=== PATIENT | male | born 1935 | race Caucasian/White ===

== ENCOUNTER 2018-06-07 12:04 | Inpatient (IN) | payer MEDICARE ==
--- NOTE | 2018-06-07 13:12 | RAD ---
RIGHT FEMUR TWO VIEWS: History: Right hip pain. FINDINGS/IMPRESSION: There is a fracture of the subcapital region of the neck of the right femur with associated foreshort ening. POS: TPC
[2018-06-07] MEDS ORDERED: Morphine 4 MG/ML VIAL ONE (13:13)
[2018-06-07] MEDS ORDERED: Ondansetron PF 4 MG/2 ML Vial ONE (13:13)
[2018-06-07 13:25] LABS: #Lymphocytes 0.6 thou/uL (1.20-3.40); #Monocytes 0.4 thou/uL (0.11-0.59); #Neutrophils 6.9 thou/uL (1.40-6.50); %Eosinophils 0.4 % (0.0-10.0); %Lymphocytes 7.2 % (21.0-51.0); %Monocytes 4.7 % (0.0-10.0); %Neutrophils 87.6 % (42.0-75.0); Hemoglobin 13.4 g/dL (14.0-18.0); Mean Corpuscular HGB CONC 35.7 g/dL (32.0-36.0); Mean Corpuscular Hemoglobin 34.3 pg (27.0-31.0); Mean Corpuscular Volume 96.1 fL (78.0-98.0); Mean Platelet Volume 6.5 fL (7.4-10.4); Platelet Count 197 thou/uL (130-400); RBC Distribution Width 12.6 % (11.5-14.5); White Blood Cell (WBC) Count 7.9 thou/uL (4.8-10.8)
[2018-06-07 13:30] LABS: PTT 30.2 SEC (22.9-36.1)
[2018-06-07 13:31] LABS: INR-International Normal Ratio 1.1; Prothrombin Time 14.5 SEC (12.0-14.7)
--- NOTE | 2018-06-07 13:40 | RAD ---
FExam: Chest one view HISTORY:Preoperative evaluation Comparison: None FINDINGS: Lungs: Mild hazy density at left lung base presumed granulomatous desiccation overlies the upper cent ral left chest. Cardiac silhouette:Enlarged Pulmonary vessels: Mildly engorged Pleural Spaces: Mild left pleural based density at inferior left hemithorax. Pneumothorax: None Osseous abnormalities: None IMPRESSION: Left basilar density, with findings that may reflect mild pleural fluid and adjacent atelectasis and/ or pneumonia. Follow-up to resolution is recommended. Enlarged cardiac silhouette and pulmonary vasculature. Correlate for evidence of fluid overload.
[2018-06-07 13:48] LABS: ALT (SGPT) 23 U/L (8-55); AST (SGOT) 25 U/L (5-34); Albumin 4.2 g/dL (3.4-4.8); Alkaline Phosphatase 82 U/L (40-150); Anion Gap 11 mmol/L (10-20); BUN (Urea Nitrogen) 14 mg/dL (8.4-25.7); Bilirubin, Total 0.7 mg/dL (0.2-1.2); Calc. Creatinine Clearance 0 mL/min (70-130); Calcium 8.9 mg/dL (7.8-10.44); Carbon Dioxide 24 mmol/L (23-31); Chloride 109 mmol/L (98-107); Estimated GFR-MDRD 84; Globulin 2.3 g/dL (2.4-3.5); Glucose 108 mg/dL (83-110); Potassium 3.7 mmol/L (3.5-5.1); Protein, Total 6.5 g/dL (5.8-8.1); Sodium 140 mmol/L (136-145)
[2018-06-07] MEDS ORDERED: Cyclobenzaprine 10 MG TAB ONE (14:45)
[2018-06-07] MEDS ORDERED: Ondansetron HCl/PF 4 MG/2 ML Vial IVP PRN (16:32)
[2018-06-07] MEDS ORDERED: Morphine 2 MG/ML SYRINGE ONE (19:21)
[2018-06-07 21:06] VITALS: BMI 23.9
[2018-06-07] MEDS ORDERED: hydrALAZINE 20 MG/ML VIAL SLOW IVP PRN (21:10)
[2018-06-07] MEDS ORDERED: Dextrose 5% in Water 1,000 ML IV PRN (21:10)
[2018-06-07] MEDS ORDERED: Promethazine HCl 25 MG/ML VIAL IM PRN (21:10)
[2018-06-07] MEDS ORDERED: Morphine 4 MG/ML VIAL SLOW IVP PRN (21:10)
[2018-06-07] MEDS ORDERED: traMADol HCl 50 MG TAB PO PRN (21:10)
[2018-06-07] MEDS ORDERED: CEFAZOLIN 2 GM in Premix Bag 1 BAG IVPB SCH (21:10)
[2018-06-07] MEDS ORDERED: Ondansetron PF 4 MG/2 ML Vial IVP PRN (21:10)
[2018-06-07] MEDS ORDERED: Dextrose 50% Abboject 50 ML SYRINGE SLOW IVP PRN (21:10)
[2018-06-07] MEDS: Gabapentin 100 MG CAP PO SCH (21:39)
[2018-06-07] MEDS: Acetaminophen 1,000 MG in Premix Bag 1 BAG IVPB SCH (21:39)
[2018-06-07] MEDS: Ibuprofen 600 MG TAB PO SCH (21:40)
[2018-06-07] MEDS: Senokot S 8.6-50 MG TAB PO SCH (21:40)
[2018-06-07] MEDS: Famotidine/PF 20 mg/2ml Vial SLOW IVP SCH (21:40)
[2018-06-07] MEDS: Sodium Chloride 0.9% 1,000 ML IV SCH (21:41)
[2018-06-08] MEDS: Sodium Chloride 0.9% 1,000 ML IV SCH ×2 (03:09→17:32)
[2018-06-08] MEDS: Acetaminophen 1,000 MG in Premix Bag 1 BAG IVPB SCH ×4 (03:09→20:32)
[2018-06-08] MEDS: Ibuprofen 600 MG TAB PO SCH ×3 (05:16→21:19)
[2018-06-08 05:52] LABS: #Eosinphils 0.2 thou/uL (0.0-0.7); #Lymphocytes 1.1 thou/uL (1.20-3.40); #Monocytes 0.7 thou/uL (0.11-0.59); #Neutrophils 5.1 thou/uL (1.40-6.50); %Basophils 0.4 % (0.0-1.0); %Eosinophils 3.1 % (0.0-10.0); %Monocytes 9.6 % (0.0-10.0); %Neutrophils 70.8 % (42.0-75.0); Hemoglobin 12.8 g/dL (14.0-18.0); Mean Corpuscular HGB CONC 33.7 g/dL (32.0-36.0); Mean Corpuscular Hemoglobin 33.1 pg (27.0-31.0); Mean Corpuscular Volume 98.1 fL (78.0-98.0); Mean Platelet Volume 6.3 fL (7.4-10.4); Platelet Count 166 thou/uL (130-400); RBC Distribution Width 12.7 % (11.5-14.5); Red Blood Cell (RBC) Count 3.88 mill/uL (4.70-6.10); White Blood Cell (WBC) Count 7.1 thou/uL (4.8-10.8)
[2018-06-08 06:11] LABS: Anion Gap 10 mmol/L (10-20); BUN (Urea Nitrogen) 13 mg/dL (8.4-25.7); Calc. Creatinine Clearance 73 mL/min (70-130); Calcium 8.7 mg/dL (7.8-10.44); Carbon Dioxide 27 mmol/L (23-31); Chloride 107 mmol/L (98-107); Estimated GFR-MDRD 81; Glucose 98 mg/dL (83-110); Magnesium 2.1 mg/dL (1.6-2.6); Phosphorus 3.4 mg/dL (2.3-4.7); Potassium 3.7 mmol/L (3.5-5.1); Sodium 140 mmol/L (136-145)
[2018-06-08] MEDS ORDERED: Potassium Phosphate 15 MMOL in Sodium Chloride 0.9% 250 ML 250 ML IVPB SCH (07:15)
--- NOTE | 2018-06-08 07:18 | HP ---
TRAUMA SURGEON: Dr. Garnica. CONSULTING PHYSICIAN: Dr. Graham. HISTORY OF PRESENT ILLNESS: The patient is an 82-year-old male, who arrived to the emergency department via EMS after his horse ran into him and he subsequently fell forward. The patient was evaluated by the Emergency Department and was found to have a right femoral neck fracture. He takes aspirin every day, but otherwise denies anticoagulation use. Denies nausea, vomiting, or diarrhea. Denies numbness or tingling to the right lower extremity. PAST MEDICAL HISTORY: The patient is a very poor historian, takes his medications regularly, but is not sure why. He does report a history of hypertension, BPH, and a right carotid artery stent. PAST SURGICAL HISTORY: Right carotid artery stent and appendectomy. SOCIAL HISTORY: The patient lives with his at home. Denies tobacco, alcohol, or drug use. MEDICATIONS: 1. Nifedipine ER 90 mg once a day. 2. Aspirin 81 mg once a day. 3. Vitamin C of 1000 mg once a day. 4. Carvedilol 3.125 mg b.i.d. 5. Lisinopril 20 mg twice a day. 6. Centrum Silver once a day. 7. Simvastatin 40 mg at night. 8. Five strain probiotics once a day at night. ALLERGIES: NO KNOWN DRUG ALLERGIES. PHYSICAL EXAMINATION: VITAL SIGNS: Temperature 98.0, pulse 77, respirations 16, oxygen saturation 97% on room air, blood pressure 160/88. PRIMARY SURVEY: Airway, intact. Adequate breath sounds bilaterally. 2+ pulses in the bilateral radials, femorals, and PTs. GCS is 15. Gross motor and sensation are intact. No lacerations, bruises, or external bleeding. SECONDARY SURVEY: HEAD: Normocephalic and atraumatic. No gross palpable skull deformities or tenderness. EYES: Pupils are equal, round, and reactive to light, 3 to 2 bilaterally. ENT: No hemotympanum. No epistaxis. No septal hematoma. Midface stable to manipulation. No blood in the oropharynx. Dentition is intact. No anterior neck injury/crepitus/tenderness. C-SPINE: No step-offs or deformities. Nontender. C-collar not in place. CHEST: Nontender. No crepitus. No abrasions or ecchymosis noted. Equal chest movement. ABDOMEN: Soft, nontender, and nondistended. PELVIS: Stable to palpation. Right lateral tenderness. No abrasions or ecchymosis noted. RECTAL: Deferred. GENITOURINARY: Deferred. EXTREMITIES: Right lower extremity rotated and shortened with right thigh pain. No abrasions or ecchymosis noted. 2+ pulses in the bilateral femorals, radials, and PTs bilaterally. BACK/SPINE: No step-offs, deformities, or tenderness to palpation of the thoracic or lumbar spine. No abrasions or ecchymosis noted. NEUROLOGIC: 5/5 strength in the bilateral machine carton marker, plantarflexion, and dorsiflexion. Gross motor and sensation, intact x4 extremities. LABORATORY FINDINGS: White count 7.9, hemoglobin 13.4, hematocrit 34.5, platelets 179. INR 1.0. Sodium 140, potassium 3.9, chloride 109, carbon dioxide 29, BUN 14, creatinine 0.78, glucose 108. DIAGNOSTIC FINDINGS: X-ray of the right femur demonstrates there is a fracture of the subcapital region of the neck of the right femur with associated foreshortening. Chest x-ray demonstrates left basilar density with findings that may reflect mild pleural fluid and adjacent atelectasis and/or pneumonia. Followup to resolution is recommended. Enlarged cardiac silhouette and pulmonary vasculature. Correlate for evidence of fluid overload. ASSESSMENT: 1. Status post fall from standing. 2. Right femoral neck fracture. 3. Acute traumatic pain. 4. Left lower lobe pleural effusion/atelectasis. 5. History of hypertension, BPH, and hyperlipidemia. PLAN: The patient will be admitted to the trauma floor service and will go to the OR with Dr. Graham today. He is n.p.o., and has normal saline at 100 an hour. He will receive pain control with Tylenol, Flexeril, gabapentin, ibuprofen, p.r.n. morphine, and tramadol. He will work with Physical and Occupational Therapy postoperatively. We will repeat a.m. chest x-ray tomorrow to re-evaluate chest findings as the patient has been lying flat since his fall. Likely, left lower lobe area has atelectasis and should improve with the patient becoming more mobile and using his incentive spirometer. The patient will be discussed with Dr. Garnica after this dictation. Job ID: [id number]
--- NOTE | 2018-06-08 07:35 | RAD ---
FPortable chest radiograph: 06/08/2018 COMPARISON: 06/07/2018 HISTORY: Left basilar density noted on prior imaging. FINDINGS: There is mild increased density within the medial left lung base, stable. No pneumothorax o r pleural fluid. No lobar consolidation or alveolar edema. The degree of density in the left base may be on the basis of mitral annular calcification and volume loss. PA and lateral imaging of the chest would be helpful for full evaluation. IMPRESSION: Mild increased density in the medial left base with no focal consolidation or alveolar ed steve.
[2018-06-08] MEDS ORDERED: Prevnar 13-Val Conj/PF 0.5 ML SYRINGE IM ONE (09:00)
[2018-06-08] MEDS: Ascorbic Acid 500 mg Chewable Tablet PO SCH (09:46)
[2018-06-08] MEDS: Gabapentin 100 MG CAP PO SCH ×3 (09:47→20:33)
[2018-06-08] MEDS: Finasteride 5 MG TAB PO SCH (09:47)
[2018-06-08] MEDS: Famotidine/PF 20 mg/2ml Vial SLOW IVP SCH ×2 (09:47→20:32)
[2018-06-08] MEDS: Polyethylene Glycol 3350 17 GM Packet PO SCH (09:47)
[2018-06-08] MEDS: Senokot S 8.6-50 MG TAB PO SCH ×2 (09:48→20:32)
[2018-06-08] MEDS: Carvedilol 3.125 MG TAB PO SCH ×2 (09:58→20:33)
[2018-06-08] MEDS ORDERED: Fentanyl 100 MCG/2 ML VIAL ONE ×2 (12:56→14:23)
[2018-06-08] MEDS ORDERED: CEFAZOLIN 2 GM in Premix Bag 1 BAG IVPB SCH (13:30)
[2018-06-08] MEDS ORDERED: Promethazine HCl 25 MG/ML VIAL SLOW IVP PRN (13:59)
[2018-06-08] MEDS ORDERED: Promethazine HCl 25 MG/ML VIAL IM PRN (13:59)
[2018-06-08] MEDS ORDERED: Ondansetron HCl/PF 4 MG/2 ML Vial IVP PRN (13:59)
--- NOTE | 2018-06-08 14:33 | RAD ---
FXR Pelvis AP STANDARD History: [Hemiarthroplasty] Comparison: Femur radiograph prior to a Findings: Satisfactory appearance right femoral arthroplasty. Expected postoperative gas and edema. Impression: Satisfactory postoperative appearance
--- NOTE | 2018-06-08 14:41 | PRG ---
DATE OF SERVICE: 06/08/2018 SUBJECTIVE: The patient was seen this morning, sitting up in bed with no signs of acute distress. He is pending the OR this morning with Dr. Graham or Dr. Ness for fixation of his right femoral neck fracture. He reported that he slept well overnight and pain is well controlled. He has been in the bed since his arrival from the emergency department. He denies nausea, vomiting, or diarrhea. He is n.p.o. since midnight. We are holding his home antihypertensive medications at this time. We will reassess the need postoperatively. OBJECTIVE: VITAL SIGNS: Temperature 98, pulse 70, respirations 16, oxygen saturation 93% on room air, and blood pressure 127/68. GENERAL: Well-appearing male, lying in bed in the semi-Gloria position. No signs of acute distress. PULMONARY: Equal chest rise and fall. Clear breath sounds bilaterally. No signs of acute respiratory distress. CARDIAC: Regular rate and rhythm. No murmurs, gallops, or rubs. GI: Abdomen is soft, nontender, and nondistended. EXTREMITIES: Right lower extremity shortened with pain at the right hip and thigh. Gross motor and sensation intact in all extremities. 2+ pulses in all extremities. No significant swelling noted. LABORATORY FINDINGS: White count 7.1, hemoglobin 12.8, hematocrit 38.1, and platelets 166. Sodium 140, potassium 3.6, chloride 107, carbon dioxide 27, BUN 13, creatinine 0.90, phos 3.4, and magnesium 2.1. DIAGNOSTIC FINDINGS: Chest x-ray this morning demonstrates mild increased density in the medial left base with no focal consolidation or alveolar edema. ASSESSMENT: 1. Status post fall from standing. 2. Right femoral neck fracture. 3. History of hypertension, BPH, and right carotid stent. PLAN: The patient to go to the OR today for fixation of his right femur fracture. He will continue to be n.p.o. with normal saline at 100 an hour. We will continue home carvedilol, finasteride, and simvastatin, but we will hold home antihypertensives until postop and start as clinically indicated. We will continue current pain regimen. Postoperatively, the patient can have a regular diet and work with Physical and Occupational Therapy. The patient was seen and examined by Dr. Garnica and myself this morning during rounds. Job ID: [id number]
--- NOTE | 2018-06-08 14:43 | RAD ---
FXR Hip Rt 1 View History: [Hemiarthroplasty] Comparison: Femur radiograph prior day Findings: Satisfactory appearance right hemiarthroplasty. Expected postoperative gas and edema. Impression: Satisfactory postoperative appearance.
[2018-06-08] MEDS ORDERED: ePHEDrine 50 MG/ML VIAL ONE (16:09)
[2018-06-08] MEDS ORDERED: Lidocaine 1% PF 5 ML VIAL ONE (16:09)
[2018-06-08] MEDS ORDERED: Glycopyrrolate 0.2 MG/ML 5 ML SYRINGE ONE (16:09)
[2018-06-08] MEDS ORDERED: Rocuronium Bromide 10 MG/ML (10ML VIAL) ONE (16:09)
[2018-06-08] MEDS ORDERED: Ondansetron PF 4 MG/2 ML Vial ONE (16:09)
[2018-06-08] MEDS ORDERED: PROPOFOL 200 MG/20 ML VIAL ONE (16:09)
--- NOTE | 2018-06-08 20:11 | OP ---
DATE OF PROCEDURE: 06/08/2018 PROCEDURE PERFORMED: Right hip hemiarthroplasty, bipolar. PREOPERATIVE DIAGNOSIS: Right femoral neck fracture. POSTOPERATIVE DIAGNOSIS: Right femoral neck fracture. COMPLICATIONS: None. ESTIMATED BLOOD LOSS: 100 mL. SANITARY PLUMBER: Avial Teixeira PA-C. IMPLANTS: DePuy size 7 basic press-fit stem, size 54 femoral head, +1.5 neck. INDICATIONS: Mr. Kamara is an 82-year-old male, who has fallen. He fractured the right femoral neck. He was indicated for hemiarthroplasty of the hip to restore the ability to mobilize and prevent complications of prolonged bedrest. Risks have been reviewed in detail. He elected to proceed with the operation. DESCRIPTION OF PROCEDURE: Mr. Kamara was identified in the preoperative holding area. His correct extremity was marked. He was carried to the operating room. He was positioned supine. General anesthesia was induced. A multidisciplinary time-out was performed. The right lower extremity was prepped and draped in sterile fashion. We began the procedure with posterior approach to the hip. We dissected down through the subcutaneous tissues to the fascia, which was opened. We explored the underlying tissues. We identified the piriformis tendon. We then subperiosteal divided the short external rotators from the proximal femur and performed the capsulotomy. We then removed the femoral head and neck fragments. At this point, we irrigated. We then exposed the proximal femur. We entered the intramedullary canal of the femur. We reamed the canal followed by broaching. We broached up to a size 7. We trialed off the broach. A +1.5 length was appropriate. At this point, we removed the trial components and impacted our final stem as well as our bipolar head in shell. The hip again was checked for stability. We thoroughly irrigated and closed with #1 Vicryl suture, 2-0 Vicryl suture, and Ethibond sutures were used to repair the capsule and piriformis through drill holes. The patient was taken to the recovery room in good condition without complication. Job ID: [id number]
[2018-06-08] MEDS: Cyclobenzaprine 10 MG TAB PO PRN (20:33)
[2018-06-08] MEDS: Simvastatin 40 MG TAB PO SCH (20:33)
[2018-06-09] MEDS: Sodium Chloride 0.9% 1,000 ML IV SCH (03:28)
[2018-06-09 04:57] LABS: #Eosinphils 0.3 thou/uL (0.0-0.7); #Lymphocytes 0.9 thou/uL (1.20-3.40); #Monocytes 0.8 thou/uL (0.11-0.59); #Neutrophils 5.4 thou/uL (1.40-6.50); %Basophils 0.4 % (0.0-1.0); %Eosinophils 3.9 % (0.0-10.0); %Monocytes 10.4 % (0.0-10.0); %Neutrophils 73.3 % (42.0-75.0); Hemoglobin 10.5 g/dL (14.0-18.0); Mean Corpuscular HGB CONC 35.5 g/dL (32.0-36.0); Mean Corpuscular Hemoglobin 35.4 pg (27.0-31.0); Mean Corpuscular Volume 99.6 fL (78.0-98.0); Mean Platelet Volume 6.4 fL (7.4-10.4); Platelet Count 141 thou/uL (130-400); RBC Distribution Width 12.8 % (11.5-14.5); Red Blood Cell (RBC) Count 2.97 mill/uL (4.70-6.10); White Blood Cell (WBC) Count 7.3 thou/uL (4.8-10.8)
[2018-06-09 05:16] LABS: Anion Gap 10 mmol/L (10-20); BUN (Urea Nitrogen) 11 mg/dL (8.4-25.7); Calc. Creatinine Clearance 64 mL/min (70-130); Calcium 8.2 mg/dL (7.8-10.44); Carbon Dioxide 27 mmol/L (23-31); Chloride 108 mmol/L (98-107); Estimated GFR-MDRD 69; Glucose 112 mg/dL (83-110); Magnesium 2.2 mg/dL (1.6-2.6); Phosphorus 2.9 mg/dL (2.3-4.7); Potassium 3.9 mmol/L (3.5-5.1); Sodium 141 mmol/L (136-145)
[2018-06-09] MEDS: Ibuprofen 600 MG TAB PO SCH ×3 (05:20→21:31)
[2018-06-09] MEDS ORDERED: Potassium Phosphate 15 MMOL in Sodium Chloride 0.9% 250 ML 250 ML IVPB SCH (07:45)
[2018-06-09] MEDS: Acetaminophen 500 MG TAB PO SCH ×3 (08:03→20:46)
[2018-06-09] MEDS: Finasteride 5 MG TAB PO SCH (08:04)
[2018-06-09] MEDS: Carvedilol 3.125 MG TAB PO SCH ×2 (08:04→20:47)
[2018-06-09] MEDS: Polyethylene Glycol 3350 17 GM Packet PO SCH (08:04)
[2018-06-09] MEDS: Senokot S 8.6-50 MG TAB PO SCH ×2 (08:05→20:47)
[2018-06-09] MEDS: Ascorbic Acid 500 mg Chewable Tablet PO SCH (08:05)
[2018-06-09] MEDS: Gabapentin 100 MG CAP PO SCH ×3 (08:05→20:47)
[2018-06-09] MEDS: Famotidine/PF 20 mg/2ml Vial SLOW IVP SCH (08:05)
[2018-06-09] MEDS: CEFAZOLIN 2 GM in Premix Bag 1 BAG IVPB SCH ×2 (11:22→18:33)
[2018-06-09] MEDS: Aspirin 81 mg Enteric Coated Tablet PO SCH ×2 (11:23→20:47)
[2018-06-09] MEDS: Cyclobenzaprine 10 MG TAB PO PRN ×2 (11:39→18:42)
--- NOTE | 2018-06-09 13:42 | PRG ---
DATE OF SERVICE: 06/09/2018 SUBJECTIVE: The patient was seen this morning sitting up in a chair next to the bed. He reported pain was well controlled. However, he has muscle spasms of his right lower extremity. He reports that it is resolved with Flexeril, which also helps with his pain. He is tolerating a regular diet, worked with Physical Therapy this morning and is amenable to go to acute rehab. Denies nausea, vomiting, and diarrhea. OBJECTIVE: VITAL SIGNS: Temperature 98.4, pulse 77, respirations 20, oxygen saturation 95% on room air, and blood pressure 118/69. GENERAL: A well-appearing elderly male, sitting up in chair. No signs of acute distress. PULMONARY: Equal chest rise and fall. Clear breath sounds bilaterally. No signs of acute respiratory distress. CARDIAC: Regular rate and rhythm. No murmurs, gallops, or rubs. GI: Abdomen is soft, nontender, and nondistended. EXTREMITIES: Right lower extremity with spasm to thigh. Gross motor and sensation are intact. A 2+ pulses in all extremities. No significant swelling noted. LABORATORY FINDINGS: White count 7.3, hemoglobin 10.5, hematocrit 29.5, and platelets 141. Sodium 141, potassium 3.9, chloride 108, carbon dioxide 26, BUN 11, creatinine 1.03, glucose 112, phos 2.9, and magnesium 2.2. DIAGNOSTIC FINDINGS: There are no new diagnostic findings to report. ASSESSMENT: 1. Status post fall from standing. 2. Right femoral neck fracture. 3. History of hypertension, benign prostatic hypertrophy, and right carotid artery stent. PLAN: The patient will continue to receive supportive care as well as physical and occupational therapy. We will continue Flexeril 5 mg t.i.d. p.r.n. We will increase to 10 mg if the patient continues to have spasms not relieved by the Flexeril. We will continue to hold his antihypertensives until clinically indicated to restart. Post-discharge, he will likely go to rehab. He can continue a regular diet. The patient was discussed with Dr. Garnica this morning after rounds. Job ID: [id number]
[2018-06-09] MEDS: Famotidine 20 MG TAB PO SCH (20:47)
[2018-06-09] MEDS: Simvastatin 40 MG TAB PO SCH (20:48)
[2018-06-10] MEDS: traMADol HCl 50 MG TAB PO PRN (01:17)
[2018-06-10] MEDS: Acetaminophen 500 MG TAB PO SCH ×4 (01:44→20:40)
[2018-06-10] MEDS: Ibuprofen 600 MG TAB PO SCH ×3 (06:15→21:55)
[2018-06-10 06:38] LABS: #Eosinphils 0.2 thou/uL (0.0-0.7); #Lymphocytes 0.9 thou/uL (1.20-3.40); #Monocytes 0.4 thou/uL (0.11-0.59); #Neutrophils 3.9 thou/uL (1.40-6.50); %Basophils 0.5 % (0.0-1.0); %Lymphocytes 16.1 % (21.0-51.0); %Neutrophils 71.5 % (42.0-75.0); Hemoglobin 9.8 g/dL (14.0-18.0); Mean Corpuscular HGB CONC 34.7 g/dL (32.0-36.0); Mean Corpuscular Hemoglobin 34.8 pg (27.0-31.0); Mean Platelet Volume 6.6 fL (7.4-10.4); Platelet Count 123 thou/uL (130-400); RBC Distribution Width 12.7 % (11.5-14.5); Red Blood Cell (RBC) Count 2.82 mill/uL (4.70-6.10); White Blood Cell (WBC) Count 5.4 thou/uL (4.8-10.8)
[2018-06-10 06:56] LABS: Anion Gap 9 mmol/L (10-20); BUN (Urea Nitrogen) 14 mg/dL (8.4-25.7); Calc. Creatinine Clearance 75 mL/min (70-130); Calcium 8.3 mg/dL (7.8-10.44); Carbon Dioxide 25 mmol/L (23-31); Chloride 111 mmol/L (98-107); Estimated GFR-MDRD 84; Glucose 104 mg/dL (83-110); Magnesium 2.2 mg/dL (1.6-2.6); Potassium 3.8 mmol/L (3.5-5.1); Sodium 141 mmol/L (136-145)
[2018-06-10] MEDS: Senokot S 8.6-50 MG TAB PO SCH (08:44)
[2018-06-10] MEDS: Polyethylene Glycol 3350 17 GM Packet PO SCH (08:45)
[2018-06-10] MEDS: Carvedilol 3.125 MG TAB PO SCH ×2 (08:46→21:55)
[2018-06-10] MEDS: Famotidine 20 MG TAB PO SCH ×2 (08:46→21:55)
[2018-06-10] MEDS: Finasteride 5 MG TAB PO SCH (08:46)
[2018-06-10] MEDS: Aspirin 81 mg Enteric Coated Tablet PO SCH ×2 (08:46→21:54)
[2018-06-10] MEDS: Gabapentin 100 MG CAP PO SCH ×3 (08:46→21:55)
[2018-06-10] MEDS: Ascorbic Acid 500 mg Chewable Tablet PO SCH (08:46)
[2018-06-10] MEDS: Cyclobenzaprine 10 MG TAB PO PRN (14:52)
--- NOTE | 2018-06-10 18:58 | PRG ---
DATE OF SERVICE: 06/10/2018 SUBJECTIVE: This is an 82-year-old male, who is hospital day #3, postop day #2, status post hip fracture repair. The patient was initially injured after his horse caused him to fall resulting in a right hip fracture. Upon my evaluation, the patient vocalized no complaints. He states that his pain is well controlled. He is working with physical therapy and tolerating a general diet. The patient is having multiple bowel movements secondary to laxatives and stool softeners. He is currently awaiting insurance approval for inpatient rehab. OBJECTIVE: VITAL SIGNS: Temperature 98.0, pulse 66, respirations 16, O2 saturation 96% on room air, blood pressure 129/75. GENERAL: Elderly appearing male, in no acute distress, sitting in chair, out of bed. PULMONARY: Normal work of breathing. Symmetric rise. CARDIOVASCULAR: Regular rate and rhythm. GI: Abdomen is soft, nontender, nondistended. MUSCULOSKELETAL: Moves all extremities x4. NEURO: No focal deficit is noted. LABORATORY FINDINGS: WBC 5.4, hemoglobin 9.8, hematocrit 28.3, platelet count 123. Sodium 141, potassium 3.8, chloride 111, carbon dioxide 25, BUN 14, creatinine 0.87, glucose 104. ASSESSMENT: 1. Status post man versus livestock. 2. Right femoral neck fracture, postop day #2. 3. Acute traumatic pain, stable. 4. History of hypertension. 5. History of benign prostatic hypertrophy. 6. History of right carotid stenting. PLAN: Continue pain management as ordered. Continue PT and OT. As he had a high level of function and independence prior to his accident he will require intense physical therapy. This is a late dictation. The patient was seen and evaluated earlier this morning. After I had seen the patient, I received notification that he had been denied by his insurance company for inpatient rehabilitation. A peer to peer review has been initiated. We are currently awaiting a response from his insurance company. The patient has been discussed with attending. Job ID: [id number] MTDD
[2018-06-10] MEDS: Simvastatin 40 MG TAB PO SCH (21:55)
[2018-06-11] MEDS: Acetaminophen 500 MG TAB PO SCH ×6 (02:50→21:10)
[2018-06-11] MEDS: Ibuprofen 600 MG TAB PO SCH ×3 (06:07→21:03)
[2018-06-11] MEDS: Cyclobenzaprine 10 MG TAB PO PRN ×3 (06:08→21:02)
[2018-06-11] MEDS: Ascorbic Acid 500 mg Chewable Tablet PO SCH (08:00)
[2018-06-11] MEDS: Gabapentin 100 MG CAP PO SCH ×3 (08:01→21:02)
[2018-06-11] MEDS: Finasteride 5 MG TAB PO SCH (08:01)
[2018-06-11] MEDS: Carvedilol 3.125 MG TAB PO SCH ×2 (08:01→21:03)
[2018-06-11] MEDS: Aspirin 81 mg Enteric Coated Tablet PO SCH ×2 (08:02→21:03)
[2018-06-11] MEDS: Famotidine 20 MG TAB PO SCH ×2 (08:02→21:03)
--- NOTE | 2018-06-11 18:13 | PRG ---
DATE OF SERVICE: 06/11/2018 SUBJECTIVE: The patient is hospital day 4, postoperative day 3 status post a right hip fracture, which he has undergone surgical repair of. The patient has been waiting for insurance approval for rehab. On Wednesday, it was reported that the patient was initially denied, and we are waiting to do a peer to peer. If not inpatient rehab, we will likely pursue alf facility. This was discussed with the patient's family this morning during rounds. The patient had no issues overnight. He is tolerating a diet. He is progressing with physical and occupational therapy, and his pain is controlled. OBJECTIVE: VITAL SIGNS: Temperature is 97.8, heart rate 85, blood pressure 153/79, respirations 14, oxygen saturation 93% on room air. GENERAL: The patient is resting comfortably on a table at bedside. He is awake, alert, and oriented x3. [place] Coma Scale is 15. HEENT: Unremarkable. LUNGS: Clear to auscultation with good inspiratory and expiratory effort. HEART: Regular rate and rhythm. ABDOMEN: Soft, flat, and nontender with active bowel sounds. EXTREMITIES: Neurovascularly intact x4. Postoperative dressing is clean, dry, and intact. LABORATORY DATA: There are no labs or radiographs to review this morning. ASSESSMENT: 1. Status post fall. 2. Right femoral neck fracture, postoperative day 3. 3. Acute traumatic pain, stable. 4. History of hypertension. 5. History of BPH. 6. History of right carotid stenting. PLAN: Plan will be to continue supportive care, physical and occupational therapy, pain control, and await final placement determination. Job ID: [id number]
[2018-06-11] MEDS: Lisinopril 20 MG TAB PO SCH (21:02)
[2018-06-11] MEDS: Simvastatin 40 MG TAB PO SCH (21:03)
[2018-06-12] MEDS: Ibuprofen 600 MG TAB PO SCH ×3 (06:28→21:01)
[2018-06-12] MEDS: Aspirin 81 mg Enteric Coated Tablet PO SCH ×2 (08:29→20:53)
[2018-06-12] MEDS: Gabapentin 100 MG CAP PO SCH ×3 (08:30→20:52)
[2018-06-12] MEDS: Famotidine 20 MG TAB PO SCH ×2 (08:30→20:53)
[2018-06-12] MEDS: Cyclobenzaprine 10 MG TAB PO PRN ×2 (08:30→18:28)
[2018-06-12] MEDS: Carvedilol 3.125 MG TAB PO SCH ×2 (08:30→20:52)
[2018-06-12] MEDS: Lisinopril 20 MG TAB PO SCH ×2 (08:31→20:52)
[2018-06-12] MEDS: Finasteride 5 MG TAB PO SCH (08:31)
[2018-06-12] MEDS: Ascorbic Acid 500 mg Chewable Tablet PO SCH (08:31)
[2018-06-12] MEDS: traMADol HCl 50 MG TAB PO PRN (12:37)
[2018-06-12] MEDS: Acetaminophen 500 MG TAB PO SCH ×2 (14:25→18:25)
--- NOTE | 2018-06-12 16:39 | PRG ---
DATE OF SERVICE: 06/12/2018 SUBJECTIVE: The patient is status post open reduction and internal fixation of right femoral neck fracture remains on the surgical floor. He has had no issues overnight. He has been working with Physical and Occupational Therapy and his pain is controlled. OBJECTIVE: VITAL SIGNS: Temperature is 98.2, heart rate 82, blood pressure 164/81, respirations 20, and oxygen saturation 98% on room air. GENERAL: The patient is resting comfortably in bed. He states he is just returned from sitting in his chair at bedside. He is tolerating a diet. His pain is controlled. He is awake, alert, and appropriate. HEENT: Unremarkable. LUNGS: Clear to auscultation with good inspiratory and expiratory effort. HEART: Regular rate and rhythm. ABDOMEN: Soft, flat, and nontender with active bowel sounds. EXTREMITIES: Neurovascularly intact x4. Postop dressing is clean, dry, and intact. LABORATORY DATA: There are no labs or radiographs reviewed this morning. ASSESSMENT: 1. Status post fall. 2. Status post open reduction and internal fixation of right femoral neck fracture. 3. Multiple comorbidities. PLAN: Plan will be to continue supportive care. Encourage physical and occupational therapy and await final placement decision. Job ID: [id number]
[2018-06-12] MEDS: Simvastatin 40 MG TAB PO SCH (20:53)
[2018-06-13] MEDS: Acetaminophen 500 MG TAB PO SCH ×4 (00:47→20:52)
[2018-06-13] MEDS: Ibuprofen 600 MG TAB PO SCH ×3 (06:45→21:00)
[2018-06-13] MEDS: Gabapentin 100 MG CAP PO SCH ×3 (08:47→20:53)
[2018-06-13] MEDS: Aspirin 81 mg Enteric Coated Tablet PO SCH ×2 (08:47→20:51)
[2018-06-13] MEDS: Finasteride 5 MG TAB PO SCH (08:47)
[2018-06-13] MEDS: Ascorbic Acid 500 mg Chewable Tablet PO SCH (08:47)
[2018-06-13] MEDS: Famotidine 20 MG TAB PO SCH (08:47)
[2018-06-13] MEDS: Carvedilol 3.125 MG TAB PO SCH ×2 (08:47→20:53)
[2018-06-13] MEDS: Lisinopril 20 MG TAB PO SCH ×2 (08:48→20:51)
[2018-06-13 08:53] LABS: #Eosinphils 0.1 thou/uL (0.0-0.7); #Lymphocytes 0.7 thou/uL (1.20-3.40); #Monocytes 0.3 thou/uL (0.11-0.59); #Neutrophils 2.4 thou/uL (1.40-6.50); %Basophils 0.5 % (0.0-1.0); %Eosinophils 3.6 % (0.0-10.0); %Lymphocytes 20.4 % (21.0-51.0); %Monocytes 8.8 % (0.0-10.0); %Neutrophils 66.7 % (42.0-75.0); Hemoglobin 10.5 g/dL (14.0-18.0); Mean Corpuscular HGB CONC 34.1 g/dL (32.0-36.0); Mean Corpuscular Hemoglobin 33.9 pg (27.0-31.0); Mean Corpuscular Volume 99.5 fL (78.0-98.0); Mean Platelet Volume 6.4 fL (7.4-10.4); Platelet Count 202 thou/uL (130-400); RBC Distribution Width 12.4 % (11.5-14.5); White Blood Cell (WBC) Count 3.6 thou/uL (4.8-10.8)
[2018-06-13] MEDS: Cyclobenzaprine 10 MG TAB PO PRN (15:15)
--- NOTE | 2018-06-13 18:46 | PRG ---
DATE OF SERVICE: 06/13/2018 SUBJECTIVE: The patient is currently on the surgical floor. He is status post open reduction and internal fixation of a right femoral neck fracture. He is currently awaiting placement. He was initially denied inpatient rehab due to not requiring any physician oversight. After an extensive conversation with him and his family, it was decided that he would go to a detention facility and the Case Management Team will work on this. Otherwise, the patient is doing well. He is progressing with physical and occupational therapy. His pain is controlled. He is tolerating a diet. His bowel function has returned. OBJECTIVE: VITAL SIGNS: Temperature is 97.7, heart rate 80, blood pressure 149/78, respirations 16, oxygen saturation 94% on room air. GENERAL: The patient is resting comfortably, sitting in a chair beside his bed. He is awake, alert, and oriented x3. [place] Coma Scale is 15. HEENT: Unremarkable. LUNGS: Clear to auscultation with good inspiratory and expiratory effort. HEART: Regular rate and rhythm. ABDOMEN: Soft, flat, nontender with active bowel sounds. EXTREMITIES: Neurovascularly intact x4. DIAGNOSTIC DATA: There are no labs or radiographs reviewed this morning. ASSESSMENT AND PLAN: 1. Status post ground level fall. 2. Status post open reduction and internal fixation of right femoral neck fracture. 3. Multiple comorbidities. PLAN: Plan will be to continue supportive care, physical and occupational therapy, and work on detention facility placement. The patient was seen with Dr. Garnica this morning during rounds. Job ID: [id number]
[2018-06-13] MEDS: Simvastatin 40 MG TAB PO SCH (20:51)
[2018-06-13] MEDS: traMADol HCl 50 MG TAB PO PRN (20:52)
[2018-06-14] MEDS: Acetaminophen 500 MG TAB PO SCH ×4 (02:44→20:37)
[2018-06-14] MEDS: traMADol HCl 50 MG TAB PO PRN ×3 (02:45→15:05)
[2018-06-14] MEDS: Ibuprofen 600 MG TAB PO SCH ×3 (06:19→21:16)
[2018-06-14] MEDS: Carvedilol 3.125 MG TAB PO SCH ×2 (08:29→20:38)
[2018-06-14] MEDS: Lisinopril 20 MG TAB PO SCH ×2 (08:29→20:38)
[2018-06-14] MEDS: Ascorbic Acid 500 mg Chewable Tablet PO SCH (08:29)
[2018-06-14] MEDS: Gabapentin 100 MG CAP PO SCH ×3 (08:29→20:38)
[2018-06-14] MEDS: Finasteride 5 MG TAB PO SCH (08:29)
[2018-06-14] MEDS: Aspirin 81 mg Enteric Coated Tablet PO SCH ×2 (08:29→20:39)
[2018-06-14] MEDS: Cyclobenzaprine 10 MG TAB PO PRN (15:04)
--- NOTE | 2018-06-14 17:30 | PRG ---
DATE OF SERVICE: 06/14/2018 This is Salena Perkins NP dictating a report for Renato Garnica DO. SUBJECTIVE: The patient is an 82-year-old gentleman, who was knocked down by his horse. The patient is postop day #6, open reduction and internal fixation of the right femoral neck fracture. The patient is currently on the surgical floor. The patient reports that his pain is well controlled at this time. The patient reports having a bowel movement. The patient also reports good appetite. The patient voices no concerns at this time. The patient is able to ambulate 200 to 300 feet and was denied inpatient rehab. The patient is now pending placement to a detention facility for continued physical and occupational therapy. OBJECTIVE: VITAL SIGNS: Temperature 98.1, pulse 68, respirations 18, SpO2 of 94% on room air, blood pressure 128/71. GENERAL: The patient is awake, alert, sitting up in the chair, in no distress. HEENT: Unremarkable. LUNGS: Good inspiratory and expiratory effort. No respiratory distress. HEART: Regular rate and rhythm. No pedal edema. ABDOMEN: Soft, nontender, and nondistended. EXTREMITIES: Neurovascularly intact x4. IMPRESSION: 1. Status post ground level fall. 2. Status post open reduction and internal fixation of right femoral neck fracture. 3. Multiple comorbidities. PLAN: We will continue supportive care. We will continue physical and occupational therapy, and work on placement to detention facility. We will continue pain management. The patient was seen with Dr. Garnica during morning rounds. Job ID: [id number]
[2018-06-14] MEDS ORDERED: traMADol HCl 50 MG TAB PO PRN (20:03)
[2018-06-14] MEDS: Simvastatin 40 MG TAB PO SCH (20:38)
[2018-06-15] MEDS: Acetaminophen 500 MG TAB PO SCH ×3 (01:08→13:45)
[2018-06-15] MEDS: Ibuprofen 600 MG TAB PO SCH ×2 (06:46→13:45)
[2018-06-15] MEDS: Ascorbic Acid 500 mg Chewable Tablet PO SCH (09:09)
[2018-06-15] MEDS: Finasteride 5 MG TAB PO SCH (09:09)
[2018-06-15] MEDS: Gabapentin 100 MG CAP PO SCH ×2 (09:10→15:08)
[2018-06-15] MEDS: Lisinopril 20 MG TAB PO SCH (09:10)
[2018-06-15] MEDS: Aspirin 81 mg Enteric Coated Tablet PO SCH (09:10)
[2018-06-15] MEDS: Carvedilol 3.125 MG TAB PO SCH (09:10)
[2018-06-15 12:21] VITALS: BP 162/71; TEMP 97.4
--- NOTE | 2018-06-15 12:41 | DIS ---
DATE OF ADMISSION: 06/07/2018 DATE OF DISCHARGE: 06/15/2018 RESIDENT: Jarek De Dios DO. CONSULT: Mark Ness MD, Orthopedics. PROCEDURE: Right hip hemiarthroplasty. IMAGING STUDIES: Hip x-ray significant for right hip fracture. Chest x-ray significant for no acute cardiopulmonary findings. DIAGNOSIS: Status post ground level fall with right femoral neck fracture. DISCHARGE MEDICATIONS: 1. Simvastatin 40 mg p.o. at bedtime. 2. Finasteride 5 mg p.o. daily. 3. Nifedipine 90 mg p.o. daily. 4. Centrum Silver Men 1 each p.o. daily. 5. Lisinopril 20 mg p.o. b.i.d. 6. Flexeril 10 mg p.o. at bedtime. 7. Coreg 3.125 mg p.o. b.i.d. 8. Aspirin 81 mg p.o. daily. 9. Vitamin C 1000 mg p.o. daily. 10. Tylenol Extra Strength 1000 mg p.o. q.6 hours. 11. Gabapentin 100 mg p.o. t.i.d. 12. Ibuprofen 600 mg p.o. q.8 hours. Discontinued meds, none. HISTORY OF PRESENT ILLNESS/HOSPITAL COURSE: Mr. Kamara is an 82-year-old male, who presents to the emergency room after being ran into by a horse with a fall afterwards, evaluated in the ER for a chief complaint of right hip pain. Imaging revealed a right femoral neck fracture. Beside of aspirin, he denies any daily anticoagulant use. The patient was admitted to Trauma-4. Orthopedic Surgery consulted. Recommend surgical intervention at that time. The patient tolerated the operation well. Pain was well controlled. Tolerated p.o. diet, ambulating well with PT, OT, urinating and stooling appropriately. It was deemed appropriate for the patient to go to inpatient rehab for continued strengthening and therapy by PT/OT. Vital signs remained stable. The patient remained afebrile. DISCHARGE INSTRUCTIONS: Location: Inpatient rehab. Diet: Heart healthy, low-sodium. Activity: As tolerated with therapy. Disposition: Follow up PCP in 7 days. This patient was seen and evaluated during morning rounds by Dr. Renato Garnica. Job ID: [id number] [facility]
== END 2018-06-15 15:50 | DRG 470 ==
LOC: ERS 12:04 → ERHOLD 13:57 → SURG B 19:11
PROVIDERS: ADMIT Surgery; ATTEND Surgery
PROC: 0SRR0JZ Replacement of Right Hip Joint, Femoral Surface with Synthetic Substitute, Open Approach (ICD-10-PCS; principal; 2018-06-08)
DX: S72.011A Unspecified intracapsular fracture of right femur, initial encounter for closed fracture (principal); J98.11 Atelectasis; Y93.52 Activity, horseback riding; Y92.9 Unspecified place or not applicable; V80.010A Animal-rider injured by fall from or being thrown from horse in noncollision accident, initial encounter; I10 Essential (primary) hypertension; N40.0 Benign prostatic hyperplasia without lower urinary tract symptoms; E78.5 Hyperlipidemia, unspecified; Z95.5 Presence of coronary angioplasty implant and graft; Z79.82 Long term (current) use of aspirin; Z79.899 Other long term (current) drug therapy
CPT/HCPCS: 36415; 71045; 72170; 80048; 80053; 83735; 84100; 85025; 85610; 85730; 86850; 86900; 86901; 90471; 90670; 93005; 96374; 96375; G0009; G0390; J0131; J0360; J2001; J2270; J2405; J2704; J3010; J3490; J7050; S0028

== ENCOUNTER 2022-03-15 12:05 | Inpatient (IN) | payer MEDICARE ==
[~2022-03-15 12:05] MED LIST: Iopamidol-370 76% 500 ML 1 ML ONE
[2022-03-15 12:45] LABS: #Lymphocytes 0.2 thou/uL (1.20-3.40); #Monocytes 0.6 thou/uL (0.11-0.59); #Neutrophils 10.8 thou/uL (1.40-6.50); %Lymphocytes 1.5 % (21.0-51.0); %Monocytes 4.7 % (0.0-10.0); %Neutrophils 93.7 % (42.0-75.0); Hemoglobin 10.8 g/dL (14.0-18.0); Mean Corpuscular HGB CONC 33.4 g/dL (32.0-36.0); Mean Corpuscular Hemoglobin 33.2 pg (27.0-31.0); Mean Corpuscular Volume 99.5 fl (78.0-98.0); Mean Platelet Volume 6.6 fL (7.4-10.4); Platelet Count 343 10x3/uL (130-400); RBC Distribution Width 12.5 % (11.5-14.5); Red Blood Cell (RBC) Count 3.25 mill/uL (4.70-6.10); White Blood Cell (WBC) Count 11.5 10x3/uL (4.8-10.8)
[2022-03-15] MEDS ORDERED: Vancomycin 1.5 GRAM/300 ML BAG 1.5 GM in Premix Bag 1 BAG IVPB SCH (12:45)
[2022-03-15] MEDS ORDERED: Piperacillin/Tazobactam 4.5 GM VIAL ONE (12:54)
[2022-03-15] MEDS ORDERED: Acetaminophen 500 MG TAB ONE (12:54)
[2022-03-15 13:01] LABS: ALT (SGPT) 57 U/L (8-55); AST (SGOT) 31 U/L (5-34); Albumin 3.5 g/dL (3.4-4.8); Alkaline Phosphatase 80 U/L (40-110); Anion Gap 13 mmol/L (10-20); BUN (Urea Nitrogen) 36 mg/dL (8.4-25.7); Bilirubin, Total 0.7 mg/dL (0.2-1.2); Calc. Creatinine Clearance 0 mL/min (70-130); Calcium 8.7 mg/dL (7.8-10.44); Carbon Dioxide 26 mmol/L (23-31); Chloride 110 mmol/L (98-107); Estimated GFR 65; Globulin 3.3 g/dL (2.4-3.5); Glucose 94 mg/dL (83-110); Potassium 3.6 mmol/L (3.5-5.1); Protein, Total 6.8 g/dL (5.8-8.1); Sodium 145 mmol/L (136-145)
[2022-03-15 13:23] LABS: CKMB 4.2 ng/mL (0-6.6)
[2022-03-15 13:27] LABS: SARS-CoV-2 NAA Rapid Test Not Detected (NotDetected)
[2022-03-15] MEDS ORDERED: Aspirin Chewable 81 MG TAB ONE (13:57)
[2022-03-15 14:54] LABS: Bilirubin Negative (Negative); Blood, Urine 1+ (Negative); Clarity Extra Turbid (Clear); Glucose, Urine (Dipstick) Normal (Negative); Ketone, Urine Trace mg/dL (Negative); Leukocyte 500 Leu/uL (Negative); Nitrite Negative (Negative); Protein, Urine (Dipstick) 30 mg/dL (Neg-Trace); Specific Gravity, Urine 1.046 (1.002-1.036); Squamous Epithelial None Seen HPF (0-3); Urobilinogen Normal mg/dL (Less than 2); WBC/HPF Greater than 50 HPF (0-3); pH, Urine 5.5 (5.0-9.0)
[2022-03-15 15:15] LABS: Bacteria/HPF 2+ HPF (None Seen)
[2022-03-15] MEDS ORDERED: Acetaminophen 650 MG Suppository PR PRN (15:30)
[2022-03-15] MEDS ORDERED: Acetaminophen 325 MG TAB PO PRN (15:30)
[2022-03-15] MEDS ORDERED: Ondansetron PF 4 MG/2 ML Vial IVP PRN (15:30)
[2022-03-15] MEDS ORDERED: Ondansetron ODT 4 MG TAB PO PRN (15:30)
[2022-03-15] MEDS ORDERED: VANCOMYCIN IVPB PRN (18:47)
[2022-03-15 19:50] VITALS: BMI 20.5
[2022-03-15] MEDS: Cefepime 1 GM in Sodium Chloride 0.9% 100 ML IVPB SCH (20:55)
[2022-03-16 06:05] LABS: #Lymphocytes 0.6 thou/uL (1.20-3.40); #Monocytes 0.7 thou/uL (0.11-0.59); #Neutrophils 11.3 thou/uL (1.40-6.50); %Eosinophils 0.1 % (0.0-10.0); %Lymphocytes 4.6 % (21.0-51.0); %Monocytes 5.8 % (0.0-10.0); %Neutrophils 89.5 % (42.0-75.0); Hemoglobin 9.1 g/dL (14.0-18.0); Mean Corpuscular HGB CONC 33.2 g/dL (32.0-36.0); Mean Corpuscular Hemoglobin 33.4 pg (27.0-31.0); Mean Platelet Volume 6.5 fL (7.4-10.4); Platelet Count 264 10x3/uL (130-400); RBC Distribution Width 12.6 % (11.5-14.5); Red Blood Cell (RBC) Count 2.74 mill/uL (4.70-6.10); White Blood Cell (WBC) Count 12.6 10x3/uL (4.8-10.8)
[2022-03-16 06:26] LABS: Anion Gap 13 mmol/L (10-20); BUN (Urea Nitrogen) 24 mg/dL (8.4-25.7); Calc. Creatinine Clearance 46 mL/min (70-130); Calcium 8.2 mg/dL (7.8-10.44); Carbon Dioxide 22 mmol/L (23-31); Chloride 113 mmol/L (98-107); Estimated GFR 63; Glucose 102 mg/dL (83-110); Potassium 3.6 mmol/L (3.5-5.1); Sodium 144 mmol/L (136-145)
[2022-03-16] MEDS: Cefepime 1 GM in Sodium Chloride 0.9% 100 ML IVPB SCH (09:05)
[2022-03-16] MEDS ORDERED: Tamsulosin HCl 0.4 MG CAP PO SCH ×2 (10:00→21:00)
[2022-03-16 11:11] LABS: CKMB 3.3 ng/mL (0-6.6)
[2022-03-16] MEDS ORDERED: VANCOMYCIN 1.25 GM/250 ML BAG 1.25 GM in Premix Bag 1 BAG IVPB SCH (14:00)
[2022-03-16 14:27] LABS: CKMB 3.5 ng/mL (0-6.6)
[2022-03-16] MEDS: cefTRIAXone\\ROCEPHIN 1 GM in Sodium Chloride 0.9% 100 ML IVPB SCH (22:18)
[2022-03-17 05:34] LABS: #Lymphocytes 0.7 thou/uL (1.20-3.40); #Monocytes 0.4 thou/uL (0.11-0.59); #Neutrophils 6.8 thou/uL (1.40-6.50); %Eosinophils 0.1 % (0.0-10.0); %Lymphocytes 8.8 % (21.0-51.0); %Monocytes 5.4 % (0.0-10.0); %Neutrophils 85.7 % (42.0-75.0); Hemoglobin 8.8 g/dL (14.0-18.0); Mean Corpuscular HGB CONC 32.7 g/dL (32.0-36.0); Mean Corpuscular Hemoglobin 32.7 pg (27.0-31.0); Mean Corpuscular Volume 99.9 fl (78.0-98.0); Mean Platelet Volume 6.6 fL (7.4-10.4); Platelet Count 257 10x3/uL (130-400); RBC Distribution Width 12.7 % (11.5-14.5); Red Blood Cell (RBC) Count 2.67 mill/uL (4.70-6.10); White Blood Cell (WBC) Count 7.9 10x3/uL (4.8-10.8)
[2022-03-17 05:46] LABS: Anion Gap 11 mmol/L (10-20); BUN (Urea Nitrogen) 20 mg/dL (8.4-25.7); Calc. Creatinine Clearance 51 mL/min (70-130); Calcium 8.1 mg/dL (7.8-10.44); Carbon Dioxide 24 mmol/L (23-31); Chloride 108 mmol/L (98-107); Estimated GFR 72; Glucose 102 mg/dL (83-110); Potassium 3.6 mmol/L (3.5-5.1); Sodium 139 mmol/L (136-145)
[2022-03-17] MEDS: Lisinopril 20 MG TAB PO SCH (20:54)
[2022-03-17] MEDS: Atorvastatin Calcium 20 MG TAB PO SCH (20:54)
[2022-03-17] MEDS: Carvedilol 3.125 MG TAB PO SCH (20:54)
[2022-03-17] MEDS: cefTRIAXone\\ROCEPHIN 1 GM in Sodium Chloride 0.9% 100 ML IVPB SCH (20:55)
[2022-03-18 05:30] LABS: #Lymphocytes 0.8 thou/uL (1.20-3.40); #Monocytes 0.3 thou/uL (0.11-0.59); #Neutrophils 4.3 thou/uL (1.40-6.50); %Basophils 0.3 % (0.0-1.0); %Eosinophils 0.4 % (0.0-10.0); %Lymphocytes 14.1 % (21.0-51.0); %Monocytes 5.1 % (0.0-10.0); %Neutrophils 80.1 % (42.0-75.0); Hemoglobin 10.1 g/dL (14.0-18.0); Mean Corpuscular HGB CONC 33.4 g/dL (32.0-36.0); Mean Corpuscular Hemoglobin 33.1 pg (27.0-31.0); Mean Corpuscular Volume 98.9 fl (78.0-98.0); Mean Platelet Volume 6.6 fL (7.4-10.4); Platelet Count 282 10x3/uL (130-400); RBC Distribution Width 12.6 % (11.5-14.5); Red Blood Cell (RBC) Count 3.05 mill/uL (4.70-6.10); White Blood Cell (WBC) Count 5.4 10x3/uL (4.8-10.8)
[2022-03-18 05:55] LABS: Anion Gap 12 mmol/L (10-20); BUN (Urea Nitrogen) 18 mg/dL (8.4-25.7); Calc. Creatinine Clearance 57 mL/min (70-130); Calcium 8.4 mg/dL (7.8-10.44); Carbon Dioxide 22 mmol/L (23-31); Chloride 106 mmol/L (98-107); Estimated GFR 83; Glucose 96 mg/dL (83-110); Potassium 3.9 mmol/L (3.5-5.1); Sodium 136 mmol/L (136-145)
[2022-03-18] MEDS: Lisinopril 20 MG TAB PO SCH (09:10)
[2022-03-18] MEDS: Multivit, Therapeutic 1 TAB PO SCH (09:11)
[2022-03-18] MEDS: NIFEdipine XL 90 MG TAB PO SCH (09:11)
[2022-03-18] MEDS: Aspirin 81 mg Enteric Coated Tablet PO SCH (09:11)
[2022-03-18] MEDS: Tamsulosin HCl 0.4 MG CAP PO SCH (09:11)
[2022-03-18] MEDS: Carvedilol 3.125 MG TAB PO SCH (09:11)
[2022-03-18] MEDS ORDERED: Polyethylene Glycol 3350 17 GM Packet PO PRN (09:47)
[2022-03-18] MEDS ORDERED: Sodium Chloride 0.9% 500 ML IV SCH (17:00)
[2022-03-18] MEDS: Atorvastatin Calcium 20 MG TAB PO SCH (21:08)
[2022-03-18] MEDS: cefTRIAXone\\ROCEPHIN 1 GM in Sodium Chloride 0.9% 100 ML IVPB SCH (21:09)
[2022-03-18] MEDS: Docusate 100 MG CAP PO SCH (21:10)
[2022-03-19 06:35] LABS: #Lymphocytes 0.6 thou/uL (1.20-3.40); #Monocytes 0.3 thou/uL (0.11-0.59); #Neutrophils 2.6 thou/uL (1.40-6.50); %Basophils 0.2 % (0.0-1.0); %Eosinophils 0.8 % (0.0-10.0); %Lymphocytes 17.9 % (21.0-51.0); %Monocytes 7.1 % (0.0-10.0); Hemoglobin 9.2 g/dL (14.0-18.0); Mean Corpuscular HGB CONC 34.8 g/dL (32.0-36.0); Mean Corpuscular Hemoglobin 33.5 pg (27.0-31.0); Mean Corpuscular Volume 96.4 fl (78.0-98.0); Mean Platelet Volume 6.4 fL (7.4-10.4); Platelet Count 294 10x3/uL (130-400); RBC Distribution Width 12.5 % (11.5-14.5); Red Blood Cell (RBC) Count 2.74 mill/uL (4.70-6.10); White Blood Cell (WBC) Count 3.5 10x3/uL (4.8-10.8)
[2022-03-19 06:57] LABS: Anion Gap 10 mmol/L (10-20); BUN (Urea Nitrogen) 16 mg/dL (8.4-25.7); Calc. Creatinine Clearance 58 mL/min (70-130); Calcium 8.4 mg/dL (7.8-10.44); Carbon Dioxide 24 mmol/L (23-31); Chloride 107 mmol/L (98-107); Estimated GFR 84; Glucose 94 mg/dL (83-110); Potassium 3.9 mmol/L (3.5-5.1); Sodium 137 mmol/L (136-145)
[2022-03-19] MEDS ORDERED: FLU VACC QS2022-23(65YR UP)/PF 240 MCG/0.7 ML SYRINGE IM ONE (09:00)
[2022-03-19] MEDS: Multivit, Therapeutic 1 TAB PO SCH (10:05)
[2022-03-19] MEDS: Carvedilol 3.125 MG TAB PO SCH ×2 (10:05→20:14)
[2022-03-19] MEDS: Aspirin 81 mg Enteric Coated Tablet PO SCH (10:05)
[2022-03-19] MEDS: Tamsulosin HCl 0.4 MG CAP PO SCH (10:05)
[2022-03-19] MEDS: Docusate 100 MG CAP PO SCH ×2 (10:06→20:15)
[2022-03-19] MEDS: Atorvastatin Calcium 20 MG TAB PO SCH (20:14)
[2022-03-19] MEDS: Sulfameth/Trimethoprim DS 800-160mg TAB PO SCH (20:14)
[2022-03-19] MEDS ORDERED: Cefuroxime 250 MG TAB PO SCH (21:00)
[2022-03-20 05:21] LABS: #Lymphocytes 0.8 thou/uL (1.20-3.40); #Monocytes 0.3 thou/uL (0.11-0.59); #Neutrophils 2.6 thou/uL (1.40-6.50); %Basophils 0.4 % (0.0-1.0); %Eosinophils 0.8 % (0.0-10.0); %Lymphocytes 21.3 % (21.0-51.0); %Monocytes 7.8 % (0.0-10.0); %Neutrophils 69.8 % (42.0-75.0); Hemoglobin 10.5 g/dL (14.0-18.0); Mean Corpuscular HGB CONC 33.7 g/dL (32.0-36.0); Mean Corpuscular Hemoglobin 32.6 pg (27.0-31.0); Mean Corpuscular Volume 96.6 fl (78.0-98.0); Mean Platelet Volume 6.4 fL (7.4-10.4); Platelet Count 318 10x3/uL (130-400); RBC Distribution Width 12.7 % (11.5-14.5); Red Blood Cell (RBC) Count 3.22 mill/uL (4.70-6.10); White Blood Cell (WBC) Count 3.7 10x3/uL (4.8-10.8)
[2022-03-20 05:41] LABS: Anion Gap 11 mmol/L (10-20); BUN (Urea Nitrogen) 16 mg/dL (8.4-25.7); Calc. Creatinine Clearance 52 mL/min (70-130); Calcium 8.8 mg/dL (7.8-10.44); Carbon Dioxide 23 mmol/L (23-31); Chloride 105 mmol/L (98-107); Estimated GFR 74; Glucose 95 mg/dL (83-110); Potassium 4.1 mmol/L (3.5-5.1); Sodium 135 mmol/L (136-145)
[2022-03-20] MEDS: Aspirin 81 mg Enteric Coated Tablet PO SCH (09:08)
[2022-03-20] MEDS: Sulfameth/Trimethoprim DS 800-160mg TAB PO SCH ×2 (09:08→19:42)
[2022-03-20] MEDS: Carvedilol 3.125 MG TAB PO SCH ×2 (09:08→19:42)
[2022-03-20] MEDS: Multivit, Therapeutic 1 TAB PO SCH (09:08)
[2022-03-20] MEDS: Tamsulosin HCl 0.4 MG CAP PO SCH (09:09)
[2022-03-20] MEDS: Docusate 100 MG CAP PO SCH ×2 (09:09→19:42)
[2022-03-20] MEDS: NIFEdipine XL 90 MG TAB PO SCH (09:12)
[2022-03-20] MEDS: Lisinopril 20 MG TAB PO SCH (19:42)
[2022-03-20] MEDS: Atorvastatin Calcium 20 MG TAB PO SCH (19:42)
[2022-03-21] MEDS: Multivit, Therapeutic 1 TAB PO SCH (08:46)
[2022-03-21] MEDS: Tamsulosin HCl 0.4 MG CAP PO SCH (08:46)
[2022-03-21] MEDS: Sulfameth/Trimethoprim DS 800-160mg TAB PO SCH ×2 (08:47→20:01)
[2022-03-21] MEDS: NIFEdipine XL 90 MG TAB PO SCH (08:47)
[2022-03-21] MEDS: Carvedilol 3.125 MG TAB PO SCH (08:47)
[2022-03-21] MEDS: Aspirin 81 mg Enteric Coated Tablet PO SCH (08:47)
[2022-03-21] MEDS: Docusate 100 MG CAP PO SCH ×2 (08:47→20:01)
[2022-03-21] MEDS: Lisinopril 20 MG TAB PO SCH (08:47)
[2022-03-21] MEDS: Atorvastatin Calcium 20 MG TAB PO SCH (20:01)
[2022-03-21] MEDS ORDERED: Midodrine HCl 5 MG TAB PO SCH (20:15)
[2022-03-21] MEDS ORDERED: Sodium Chloride 0.9% 500 ML IV SCH (21:45)
[2022-03-22 05:33] LABS: #Eosinphils 0.1 thou/uL (0.0-0.7); #Lymphocytes 0.9 thou/uL (1.20-3.40); #Monocytes 0.4 thou/uL (0.11-0.59); #Neutrophils 4.3 thou/uL (1.40-6.50); %Basophils 0.4 % (0.0-1.0); %Eosinophils 1.3 % (0.0-10.0); %Lymphocytes 15.7 % (21.0-51.0); %Monocytes 6.5 % (0.0-10.0); %Neutrophils 76.2 % (42.0-75.0); Hemoglobin 9.8 g/dL (14.0-18.0); Mean Corpuscular HGB CONC 34.5 g/dL (32.0-36.0); Mean Corpuscular Hemoglobin 33.2 pg (27.0-31.0); Mean Platelet Volume 6.2 fL (7.4-10.4); Platelet Count 330 10x3/uL (130-400); RBC Distribution Width 13.2 % (11.5-14.5); Red Blood Cell (RBC) Count 2.95 mill/uL (4.70-6.10); White Blood Cell (WBC) Count 5.7 10x3/uL (4.8-10.8)
[2022-03-22 05:55] LABS: Anion Gap 11 mmol/L (10-20); BUN (Urea Nitrogen) 22 mg/dL (8.4-25.7); Calc. Creatinine Clearance 37 mL/min (70-130); Calcium 8.7 mg/dL (7.8-10.44); Carbon Dioxide 22 mmol/L (23-31); Chloride 106 mmol/L (98-107); Estimated GFR 49; Glucose 89 mg/dL (83-110); Potassium 4.2 mmol/L (3.5-5.1); Sodium 135 mmol/L (136-145)
[2022-03-22] MEDS: Docusate 100 MG CAP PO SCH ×3 (08:12→20:55)
[2022-03-22] MEDS: Multivit, Therapeutic 1 TAB PO SCH (08:12)
[2022-03-22] MEDS: Tamsulosin HCl 0.4 MG CAP PO SCH (08:12)
[2022-03-22] MEDS: Sulfameth/Trimethoprim DS 800-160mg TAB PO SCH (08:12)
[2022-03-22] MEDS: Aspirin 81 mg Enteric Coated Tablet PO SCH (08:12)
[2022-03-22] MEDS: Atorvastatin Calcium 20 MG TAB PO SCH (20:48)
[2022-03-23 05:07] LABS: #Eosinphils 0.1 thou/uL (0.0-0.7); #Lymphocytes 1.1 thou/uL (1.20-3.40); #Monocytes 0.5 thou/uL (0.11-0.59); #Neutrophils 4.6 thou/uL (1.40-6.50); %Basophils 0.2 % (0.0-1.0); %Eosinophils 1.1 % (0.0-10.0); %Lymphocytes 17.4 % (21.0-51.0); %Monocytes 7.9 % (0.0-10.0); %Neutrophils 73.5 % (42.0-75.0); Hemoglobin 9.7 g/dL (14.0-18.0); Mean Corpuscular HGB CONC 34.8 g/dL (32.0-36.0); Mean Corpuscular Hemoglobin 33.4 pg (27.0-31.0); Mean Corpuscular Volume 96.2 fl (78.0-98.0); Mean Platelet Volume 6.2 fL (7.4-10.4); Platelet Count 339 10x3/uL (130-400); RBC Distribution Width 13.7 % (11.5-14.5); Red Blood Cell (RBC) Count 2.91 mill/uL (4.70-6.10); White Blood Cell (WBC) Count 6.2 10x3/uL (4.8-10.8)
[2022-03-23 05:28] LABS: Anion Gap 13 mmol/L (10-20); BUN (Urea Nitrogen) 23 mg/dL (8.4-25.7); Calc. Creatinine Clearance 40 mL/min (70-130); Carbon Dioxide 22 mmol/L (23-31); Chloride 106 mmol/L (98-107); Estimated GFR 53; Glucose 89 mg/dL (83-110); Potassium 4.5 mmol/L (3.5-5.1); Sodium 136 mmol/L (136-145)
[2022-03-23] MEDS: Tamsulosin HCl 0.4 MG CAP PO SCH (09:46)
[2022-03-23] MEDS: Docusate 100 MG CAP PO SCH (09:46)
[2022-03-23] MEDS: Multivit, Therapeutic 1 TAB PO SCH (09:46)
[2022-03-23] MEDS: Aspirin 81 mg Enteric Coated Tablet PO SCH (09:46)
[2022-03-23 11:56] VITALS: BP 105/52; TEMP 98
== END 2022-03-23 14:20 | DRG 871 ==
LOC: ERS 12:05 → NEURO 15:05 → ERHOLD 15:05 → NEURO 18:24
PROVIDERS: ADMIT Family Medicine; ATTEND Internal Medicine
DX: A41.81 Sepsis due to Enterococcus (principal); G93.41 Metabolic encephalopathy; I21.A1 Myocardial infarction type 2; I69.951 Hemiplegia and hemiparesis following unspecified cerebrovascular disease affecting right dominant side; N10 Acute pyelonephritis; I10 Essential (primary) hypertension; E78.5 Hyperlipidemia, unspecified; K40.90 Unilateral inguinal hernia, without obstruction or gangrene, not specified as recurrent; N40.0 Benign prostatic hyperplasia without lower urinary tract symptoms; F03.90 Unspecified dementia, unspecified severity, without behavioral disturbance, psychotic disturbance, mood disturbance, and anxiety; Z79.82 Long term (current) use of aspirin; Z79.899 Other long term (current) drug therapy
CPT/HCPCS: 36415; 36416; 51702; 70450; 71046; 74177; 80048; 80053; 81003; 81015; 82553; 83605; 84484; 85025; 87040; 87077; 87086; 87186; 87811; 93005; 96365; 96366; 96375; J0692; J0696; J1650; J2543; J3370; J3490; J7030; Q9967